=== PATIENT | female | born 1980 ===

== ENCOUNTER → 2024-09-15 09:40 | Outpatient (BNV) | payer MEDICAID, SELFPAY | PROVIDERS: Visit Provider Radiology Diagnostic Radiology | DX: R05.9 Cough, unspecified (principal) | CPT/HCPCS: 71045 ==

== ENCOUNTER 2024-09-15 09:42 | Emergency (ER) | payer MEDICAID, SELFPAY ==
--- NOTE | ~2024-09-15 | XR_ITS ---
EXAMINATION: XR CHEST CLINICAL INFORMATION: Cough COMPARISON: None available. TECHNIQUE: PA view of the chest was obtained. FINDINGS: The Cardiac, hilar, and mediastinal contours are normal. The lungs are clear bilaterally. There is no bony or soft tissue abnormality. XR/XR chest 1V IMPRESSION: Normal chest. Electronically signed by: Malachi Copeland MD 09/15/2024 10:10 AM [facility]
[2024-09-15 09:45] VITALS: BP 112/47; PULSE 77; RESP 20; TEMP 37.3; O2SAT 100; BMI 25.2
[2024-09-15 10:08] LABS: IDNOW Serial# 08D9AD1C; Strep A Nucleic Acid Negative (Negative)
[2024-09-15 10:37] LABS: Influenza A PCR NEGATIVE (Negative); Influenza B PCR NEGATIVE (Negative); Resp Syncy Virus RNA Qual PCR NEGATIVE (Negative); SARS COV2 PCR INHOUSE NEGATIVE (Negative)
[2024-09-15 11:19] VITALS: BP 118/73; PULSE 88; RESP 16; TEMP 36.5; O2SAT 100
--- NOTE | 2024-09-15 11:27 | ED_ITS ---
HPI - URI/Sore Throat General Chief Complaint: Upper Respiratory Symptoms Stated Complaint: sore throat Time Seen by Provider: 09/15/24 11:24 Source: patient Mode of arrival: ambulatory Limitations: no limitations History of Present Illness ED Provider: Salima Bonilla PA-C HPI Narrative: 44 yo female presents to the ER for evaluation of cough, nasal congestion and sore throat for the last 1 day. She denies any known sick contacts. She reports pain with swallowing and coughing. She states she is bringing up green phlegm at times. No fever or chills. She has a mild headache and some body aches. No abdominal pain, chest pain, difficulty breathing, nausea, vomiting, diarrhea or urinary symptoms. MD elicited complaint: cough and sore throat Onset (ago): day(s) (1) Consistency: intermittent Severity: moderate Description of mucous: green Able to tolerate fluids by mouth: Yes Exacerbating factors: swallowing Relieving factors: nothing Associated symptoms: headache, nasal congestion, sore throat and cough Treatments prior to arrival: none Related Data Allergies Allergy/AdvReac Type Severity Reaction Status Date / Time No Known Allergies Allergy Verified 09/15/24 09:47 Review of Systems Review of Systems: Yes all other systems are reviewed and are negative [facility] Social History Social History Unable to assess alcohol history related to: Unknown Use of substances other than those prescribed or required for medical reasons: Unknown Advance Directives: No Advance Directives Information Provided: Yes Physical Exam Vital Signs: Vital Signs: Last Vital Signs Temp 97.7 F 09/15/24 11:19 Pulse 88 09/15/24 11:19 Resp 16 09/15/24 11:19 BP 118/73 09/15/24 11:19 Pulse Ox 100 09/15/24 11:19 O2 Del Method Room Air 09/15/24 11:19 BMI result Body Mass Index 25.2 Appearance: Alert. Oriented X3. No acute distress. Head: normocephalic, atraumatic. Eyes: Pupils equal, round and reactive to light. ENT: Pharynx normal. No tonsillar swelling or exudate. Normal voice. Handling secretions normally. Neck: Normal inspection. Neck supple. CVS: Normal heart rate and rhythm. Pulses normal. Respiratory: No respiratory distress. Breath sounds normal. Abdomen: Soft and nontender. +BS x4 Skin: Skin warm and dry. Normal skin color. Normal skin turgor. No rashes. Extremities: No lower extremity edema. No joint swelling. Neuro/psych: Oriented X 3. Grossly normal, nonfocal. Normal speech and cognition. Medical Decision Making Medical Decision Making [facility] Narrative: 44-year-old female presents the ER for evaluation of sore throat, productive cough, headache and body aches for 1 days. No fever. Vital signs are stable on arrival. Physical exam is unremarkable. She was tested for COVID, flu, RSV and strep throat all of which were negative. Her chest x-ray was normal. Lung sounds were normal. She is most likely suffering from a viral upper respiratory infection. Treatment is rest and supportive care. We discussed treatment options and recommendations along with return precautions. Stable for discharge home with supportive care. Differential Diagnosis Differential Diagnoses: The differential diagnosis associated with the presentation includes strep, covid, flu, rsv, other viral syndrome, bronchitis, pneumonia, no evidence of peritonsillar abcsess or retropharyngeal abscess Lab Data [facility] Lab Attestation statement: I reviewed the patient's lab results. Labs: Lab Results 09/15/24 Range/Units 09:54 Influenza Type A (PCR) NEGATIVE (Negative) Influenza Type B (PCR) NEGATIVE (Negative) RSV RNA Qual (PCR) NEGATIVE (Negative) SARS-CoV-2 RNA (RT-PCR) NEGATIVE (Negative) S. pyogenes GrpA CLOTILDE Negative (Negative) Independent Interpretation I performed an independent interpretation of an: Plain X-Ray Interpretation: No focal infiltrate or effusion Radiology Impression Discussion of test interpretation with radiology: I have reviewed the radiologist's reading. Prescription Management I considered prescription management with: Pain Medication, Antiviral and Antibiotic Critical Care Time Critical Care Time Critical Care Time: No Discharge Plan Discharge Clinical Impression: Upper respiratory infection, viral Patient Disposition: Home, Self-Care Instructions: Upper Respiratory Infection (DC) Additional Instructions: You tested negative for COVID, flu, RSV and strep throat. Your chest x-ray was normal. Your symptoms most likely viral. Treatment is rest and supportive care. Take [id number] cold and flu medications as needed for your symptoms. Use warm saltwater gargles 3 times per day. Take Motrin and Tylenol as needed for pain. Rest and drink plenty of fluids. Follow-up with your doctor as needed. If you develop new or worsening symptoms call 911 or come back to the ER for further evaluation. Stand Alone Forms: Work/School Release Print Language: Cuban
[2024-09-15 12:54] VITALS: BP 118/73; PULSE 88; RESP 16; TEMP 36.5; O2SAT 100
== END 2024-09-15 12:55 | disposition home or self-care (01) ==
PROVIDERS: Emergency Provider Student in an Organized Health Care Education/Training Program
DX: J06.9 Acute upper respiratory infection, unspecified (principal); J02.9 Acute pharyngitis, unspecified; R05.9 Cough, unspecified; Z03.818 Encounter for observation for suspected exposure to other biological agents ruled out
CPT/HCPCS: 0241U; 71045; 87651; 99283; 99284